=== PATIENT | male | born 1975 | race Caucasian/White ===

== ENCOUNTER 2020-11-16 14:40 | Emergency (ER) | payer OTHER, MEDICAID ==
[~2020-11-16] VITALS: Ht 180.3 cm; Wt 77.1 kg
[~2020-11-16 14:40] MED LIST: AZITHROMYCIN 2250 MG PO; FLEXERIL PO; HYDROCODONE-APA1 TA1 PO; KEFLEX500 M1 PO; MEDROLDOSEPACK PO; PROAIR HFA8.5 GM PO
[2020-11-16 16:37] VITALS: BP 115/65
== END 2020-11-16 16:38 | disposition home or self-care (01) ==
LOC: M.ERS 14:40
DX: S63.592A Other specified sprain of left wrist, initial encounter (principal); S50.02XA Contusion of left elbow, initial encounter; S80.02XA Contusion of left knee, initial encounter; S60.222A Contusion of left hand, initial encounter; S50.812A Abrasion of left forearm, initial encounter; J44.9 Chronic obstructive pulmonary disease, unspecified; F17.210 Nicotine dependence, cigarettes, uncomplicated; Z88.5 Allergy status to narcotic agent; V86.99XA Unspecified occupant of other special all-terrain or other off-road motor vehicle injured in nontraffic accident, initial encounter; Y93.89 Activity, other specified; Y92.89 Other specified places as the place of occurrence of the external cause; Y99.8 Other external cause status